=== PATIENT | female | born 1985 | race Caucasian/White ===

== ENCOUNTER 2019-12-09 10:58 | Outpatient (CLI) | payer OTHER, SELFPAY ==
[2019-12-09 11:39] LABS: Hematocrit 42.7 % (37.0-47.0); Hemoglobin 14.5 g/dL (12.0-15.0); Mean Corpuscular Hemoglobin 30.3 pg (26-34); Mean Corpuscular Volume 89.1 fl (80-100); Mean Platelet Volume 10.9 fl (7.4-10.4); Platelet Count Result 254 k/mm3 (150-375); Red Blood Count 4.79 M/mm3 (4.2-5.4); Red Cell Distribution Width 12.1 % (11.5-14.5); White Blood Count 10.6 K/mm3 (4.5-10.0)
== END 2019-12-09 10:59 | disposition home or self-care (01) ==
LOC: ANHSURGERY 11:01
PROVIDERS: PCP Internal Medicine; Visit Provider Student in an Organized Health Care Education/Training Program
DX: R10.2 Pelvic and perineal pain (principal)
CPT/HCPCS: 36415; 85027; 86850; 86900; 86901

== ENCOUNTER 2019-12-18 00:13 | Day surgery (SDC) | payer OTHER, SELFPAY ==
[2019-12-03 15:51] VITALS: BMI 39.4
[2019-12-18] VITALS (11 sets, daily range): BP systolic 108–130; BP diastolic 63–81; PULSE 68–90; RESP 15–24; TEMP 36.5–37.1; O2SAT 94–100
--- NOTE | 2019-12-18 09:06 | PM.IMHP ---
H&P: HPI History of Present Illness Chief complaint: pelvic pain, fibroids, enlarge uterus Narrative: Apryl Feliciano is a 34 year old female who presented with a long history of pelvic pain and known uterine fibroids. Pt was previously under the care of another Truck Driver Salesperson who no longer accepts her insurance. She received a pelvic US in September which showed rapid growth of her known uterine fibroid. Pt desires definitive management via hysterectomy. A pelvic MRI was obtained to further investigate fibroid size and location for surgical planning. patient and were acceptiable to the plan of hysterectomy and no future fertility. Review of Systems Constitutional: Constitutional: Reports no additional constitutional complaints Cardiovascular: Cardiovascular: Reports no additional cardiovascular complaints Respiratory: Respiratory: Reports no additional respiratory complaints Gastrointestinal: Gastrointestinal: Reports no additional gastrointestinal complaints Genitourinary: Genitourinary: Reports abnormal vaginal bleeding, Reports menorrhagia, Denies dysuria, Reports pelvic pain and Reports urinary incontinence Neurologic: Reports system reviewed and no additional complaints, except as documented Psychiatric: Psychiatric: Reports no additional psychiatric complaints [facility] Past Medical History Medical History (Updated 12/18/19 @ 09:15 by Jacinto Virk MD) Anxiety PCOS (polycystic ovarian syndrome) Meds Home Medications and Allergies Home Medications Medication Instructions Recorded Confirmed Type ibuprofen 800 mg PO DAILY 12/03/19 12/03/19 History multivitamin 1 tablet PO DAILY 12/03/19 12/03/19 History Allergies Allergy/AdvReac Type Severity Reaction Status Date / Time No Known Allergies Allergy Verified 12/03/19 15:52 Exam Const: General: comfortable and no acute distress Neck: Neck: no JVD Thyroid: thyroid normal Lymphatic: lymphadenopathy not noted Resp: Effort & Inspection: normal respiratory effort Auscultation: clear to auscultation bilaterally Cardio: Rate: regular rate Rhythm: regular rhythm GI: Inspection: non-distended GI Palp: Yes Soft to palpation, No Tenderness to palpation present (GI) and No Guarding due to palpation present (GI) Auscultation: normal bowel sounds : External Female Exam: normal external appearance Speculum Exam - Vagina: normal appearance of the vagina Speculum Exam - Cervix: normal appearance of the cervix Bimanual exam- vagina & uterus: bladder normal to palpation, enlarged, not fixed and nontender Bimanual Exam- Adnexa, other: normal adnexae and no masses Skin: General skin exam: no rashes or lesions noted Neuro: Cognition (Neuro): normal cognition Speech: normal speech Extrem: General: normal to inspection Psych: Mental Status: mental status grossly normal Affect: normal affect Assessment and Plan Assessment and plan (1) Uterine fibroid: Code(s): D25.9 - Leiomyoma of uterus, unspecified Status: Acute Assessment and Plan: pt with known uterine fibroid, reports increased pelvic pain MRI shows 7.5 cm anterior intramural uterine fibroid pelvic US shows uterus measuring 12 x 7.5x 7.7 cm discussed alternative management options. pt desires definitive management via hysterectomy plan for robotic assisted total laparoscopic hysterectomy with bilateral salpingectomy (2) Pelvic pain: Code(s): R10.2 - Pelvic and perineal pain Status: Acute
[2019-12-18] MEDS: LACTATED RINGERS 1,000 ML 30 ML IV CONT ×2 (11:00→14:54)
--- NOTE | 2019-12-18 11:04 | WPDANESEPPF ---
Anes - Initial Pre Proc Eval Procedure: Operation Date: 12/18/19 12:30 Proposed Procedures p Robotic Assisted Total Vaginal Hysterectomy with Bilateral Salpingectomy - Jacinto Virk MD Date/Time: 12/18/19 11:04 Surgeon: Jacinto Virk MD Pre Op Diagnosis: pelvic pain, fibroids, enlarge uterus Patient Data Age: 34 Gender: F Height: 5 ft 4 in Weight: 104.33 kg Allergies Allergy/AdvReac Type Severity Reaction Status Date / Time No Known Allergies Allergy Verified 12/03/19 15:52 Home Medications Medication Instructions Recorded Confirmed Type ibuprofen 800 mg PO DAILY 12/03/19 12/03/19 History multivitamin 1 tablet PO DAILY 12/03/19 12/03/19 History Patient hx anesthesia problems: post op nausea/vomiting Family hx anesthesia problems: none PMFSH Past Medical History Medical History Anxiety PCOS (polycystic ovarian syndrome) Anes - Eval Final PreProcedure Day of Procedure 12/18/19 11:04 Patient weight: morbidly obese Heart: regular rate and rhythm Lungs: clear to auscultation Airway: Mallampati scale class III Neurological: alert and oriented Last oral intake: >/= 8 hours ASA classification: III Emergent: no Anesthetic plan: proceed Anesthesia type and monitoring: general ETT and standard monitoring Informed Consent: The patient's anesthetic plan and its attendant risks and benefits were discussed with the patient/family/POA. Questions were solicited and answers provided to the satisfaction of the patient/family/POA.
[2019-12-18] MEDS: ONDANSETRON INJ 4 MG/2 ML VIAL IV PUSH (11:10)
[2019-12-18] MEDS: SCOPOLAMINE 1.5 MG PATCH TRANSDERM (11:10)
[2019-12-18] MEDS: ceFAZolin 2 GM/D5W 50 ML 2 GM/50 ML BAG IVPB (12:33)
[2019-12-18] MEDS: LIDO 1%/EPINEPHRINE 1:100,000 20 ML VIAL 10 ML INFILTRATE (14:10)
[2019-12-18] MEDS: KETOROLAC 30 MG/ML VIAL (*BKC) IV PUSH (14:31)
--- NOTE | 2019-12-18 14:33 | SUR.OPER ---
[id number]=[id number]
[2019-12-18] MEDS: HYDROMORPHONE HCL 1 MG/ML INJ 0.5 MG IV PUSH ×4 (15:04→15:43)
--- NOTE | 2019-12-18 15:20 | PM.PROC ---
Procedure Note - Detailed Date of procedure: 12/18/19 Pre-op diagnosis: pelvic pain, fibroids, enlarge uterus Procedure performed: Robotic assisted total laparoscopic hysterectomy bilateral salpingectomy Description of procedure: PROCEDURE IN DETAIL: After the patient was appropriately consented she was taken to the operating room where she was transferred to the table in a dorsal supine position. General anesthesia was then induced with endotracheal intubation. The patient was transferred to a dorsal lithotomy position using adjustable yellow-fin stirrups. Her position was adjusted for appropriate support of her lower back and lower extremities. The patient was prepped and draped. A transurethral vigil catheter was place. The uterus was sounded to 10 cm. The cervix was sequentially dilated and a GRIFFIN uterine manipulator placed in typical fashion about a 3.5 cm JASMYN ring. Gloves were changed. After confirmation of a functioning orogastric tube, lidocaine was injected at Arteaga's point in the LUQ and a 5mm incision was made. A 5mm Optiview trocar was then inserted into the abdominal cavity under direct visualization and done so without complication. The abdomen was then insufflated with approximately 2-3L of CO2 establishing a pneumoperitoneum and the patient was placed in Trendelenburg position. Just above the umbilicus in the midline, a 10mm incision made after injection of lidocaine and a 12mm bladeless trocar advanced into the abdominal cavity under direct visualization without incident. We subsequently placed two robotic ports in a similar fashion, one in the left mid-quadrant and one in the right, 10cm lateral to the midline port. The robot was then docked. The Left fallopian tube was identified out to the fimbrae. The fallopian tube was then coagulated and ligated along the inferior mesosalpinx toward the uterus. The utero-ovarian ligament was identified and ligated. The left round ligament was divided and the posterior aspect of the broad ligament was then skeletonized down to the level of the internal cervical os, mobilizing the ureter laterally. The bladder flap was then created sharply. The ipsilateral uterine artery was skeletonized, bipolar cauterized and transected. A similar procedure was performed on the contralateral side, developing the pelvic spaces, coagulating and dividing the IP away from the ureter, completing the bladder flap, and skeletonizing, ligating, and dividing the uterine artery on this side. We ensured the vaginal pneumo-occluder balloon was insufflated and made a circumferential colpotomy using monopolar current. The uterus, cervix, and bilateral tubes were then delivered transvaginally. I then re-approximated the colpotomy with a single interuppted 0-vicryl at the left apex and running #1 PDO Quill suture in 2 layers. Following this dissection, the abdomen and pelvis were copiously irrigated and all surgical sites found to be hemostatic. Hemoderm powder was placed over the vaginal cuff. Skin sites were reapproximated with 4-0 Vicryl in a subcuticular fashion. Dermabond placed. The patient tolerated the procedure well. Sponge, needle and instrument counts were correct x 2 and the patient was taken to recovery in stable condition. Ancef was given for antimicrobial prophylaxis. The patient had SCD's on for VTE prophylaxis during the entire procedure. Anest[facility]: [facility] Surgeon: Jacinto Virk MD Estimated blood loss (mL): 100 IV fluids (mL): 1,600 Urine output (mL): 150 Drains: No Packing: No Pathology: yes (uterus, cervix, bilateral fallopian tubes, bilateral ovaries ) Complications: No immediate complications Condition: stable Disposition: PACU
--- NOTE | 2019-12-18 15:24 | SUR.PHASEI ---
1515 placed to bedpan unable to void and removed.
--- NOTE | 2019-12-18 15:56 | SUR.PHASEI ---
[address] kumar and informed for pt status,states will see pt in 10 min.
== END 2019-12-18 17:28 | disposition home or self-care (01) ==
PROVIDERS: PCP Internal Medicine; Visit Provider Student in an Organized Health Care Education/Training Program
PROC: (CPT 58554; principal; 2019-12-18 12:30)
DX: D25.1 Intramural leiomyoma of uterus (principal); N72 Inflammatory disease of cervix uteri; N88.8 Other specified noninflammatory disorders of cervix uteri; N83.8 Other noninflammatory disorders of ovary, fallopian tube and broad ligament; R10.2 Pelvic and perineal pain; E28.2 Polycystic ovarian syndrome; F41.9 Anxiety disorder, unspecified; E66.01 Morbid (severe) obesity due to excess calories; Z68.39 Body mass index [BMI] 39.0-39.9, adult
CPT/HCPCS: 58554; 88307; A9270; J0131; J0690; J1100; J1170; J1885; J2250; J2270; J2405; J2704; J7030; J7120

== ENCOUNTER 2023-03-11 18:12 | Emergency (ER) | payer OTHER, SELFPAY ==
--- NOTE | ~2023-03-11 | US_ITS ---
EXAMINATION: US pelvic complete DATE: 03/11/2023 22:52 INDICATION: left pelvic pain, n/v TECHNIQUE: Multiple transabdominal sonographic images of the pelvis were obtained. COMPARISON: MR pelvis 11/16/2019. FINDINGS: Uterus: Surgically absent. Right Ovary: 2.5 x 2.7 x 3.0 cm. Vascular flow is present. Left Ovary: 2.9 x 2.4 x 2.7 cm. Vascular flow is present. There is no free fluid in the pelvis. IMPRESSION: Status post hysterectomy. Otherwise normal pelvic sonogram findings. Reviewed, dictated and finalized at location [facility].
[2023-03-11 18:26] VITALS: BP 144/90; PULSE 88; RESP 18; TEMP 36.7; O2SAT 100
[2023-03-11 19:56] LABS: Appearance Urine Clear (Clear); Bilirubin Urine Negative (Negative); Blood Urine Negative (Negative); Color Urine Yellow (Yellow); Glucose Urine UA Negative (Negative); Ketones Urine Trace mg/dL (Negative); Leukocyte Esterase Ur Negative LEU/UL (Negative); Nitrate Urine Negative (Negative); Protein Urine Negative (Negative); Specific Grav Ur 1.025 (1.001-1.035); Urobilinogen Urine 0.2 mg/dL (<2.0); pH Urine 5.5 (5.0-9.0)
[2023-03-11 19:56] LABS: Basophils Percent Auto 0.2 % (0.2-1.2); Eosinophils Absolute Auto 0.1 K/mm3 (0-0.3); Eosinophils Percent Auto 0.7 % (0-4.4); Hematocrit 39.2 % (37.0-47.0); Hemoglobin 13.2 g/dL (12.0-15.0); Immature Granulocyte Absolute 0.06 K/mm3 (0.00-0.031); Immature Granulocyte Percent A 0.5 % (0-0.5); Lymphocytes Absolute Auto 2.18 K/mm3 (0.9-3.2); Lymphocytes Percent Auto 17.4 % (18.3-44.2); Mean Corpuscular HGB Conc 33.7 g/dl (32-36); Mean Corpuscular Hemoglobin 31.1 pg (26-34); Mean Corpuscular Volume 92.5 fl (80-100); Mean Platelet Volume 9.6 fl (7.4-10.4); Monocytes Absolute Auto 0.6 K/mm3 (0.1-0.6); Neutrophils Absolute Auto 9.5 K/mm3 (1.3-6.7); Neutrophils Percent Auto 76.2 % (45.5-73.1); Platelet Count Result 234 k/mm3 (150-375); Red Blood Count 4.24 M/mm3 (4.2-5.4); Red Cell Distribution Width 12.9 % (11.5-14.5); White Blood Count 12.5 K/mm3 (4.5-10.0)
[2023-03-11 20:06] LABS: Add Urine Microscopic? NO
[2023-03-11 20:06] LABS: Alanine Aminotransferase 34 U/L (6-35); Albumin Level 4.3 g/dL (3.5-5.1); Alkaline Phosphatase 44 U/L (38-126); Anion Gap 6 mmol/L (8-16); Aspartate Amino Transferase 38 U/L (14-36); Bilirubin,Total 0.4 mg/dL (0.2-1.3); Blood Urea Nitrogen 13 mg/dL (7-17); Calcium 8.7 mg/dL (8.4-10.2); Carbon Dioxide 28 mmol/L (22-30); Chloride 104 mmol/L (98-107); Estimated CRCL calculation 174 ml/min; Estimated Glomerular Filt Rate > 60; Glucose 98 mg/dL (65-110); Lipase 48 U/L (23-300); Potassium 4.1 mmol/L (3.4-5.0); Sodium 138 mmol/L (137-145)
[2023-03-11 21:58] VITALS: BP 149/87; PULSE 93; RESP 18; TEMP 36.4; O2SAT 98
[2023-03-11] MEDS: ONDANSETRON INJ 4 MG/2 ML VIAL IV PUSH (22:58)
--- NOTE | 2023-03-11 22:58 | ED.FEMALEGU ---
HPI - Female Genitourinary General Chief complaint: [employer] Stated complaint: left pelvic/abd pain Time Seen by Provider: 03/11/23 22:13 History of Present Illness HPI Narrative: Patient is a 38-year-old female here for evaluation of left pelvic/back pain x 1 day. She was seen at outside emergency department today, she had labs and a CT scan done and was told that she had some inflammation in her fallopian tube and to get an outpatient pelvic ultrasound. Patient states that the pain has persisted and worsened. Some vaginal discharge but denies any dysuria, urgency, frequency vaginal bleeding, vomiting, diarrhea, constipation or fevers. Related Data Home Medications Medication Instructions Recorded Confirmed multivitamin 1 tablet PO DAILY 12/03/19 12/03/22 bupropion HCl 300 mg 24 hr tablet, 300 mg PO QAM 11/30/22 11/30/22 extended release buspirone 10 mg tablet 10 mg PO BID 11/30/22 11/30/22 clonazepam 0.5 mg tablet 0.5 mg PO DAILY 11/30/22 11/30/22 duloxetine 60 mg capsule,delayed 60 mg PO .hs 11/30/22 11/30/22 release esketamine 84 mg (28 mg x 3) nasal 84 mg intranasal 2XW 11/30/22 11/30/22 spray (Spravato) serdexmethylphenidate 52.3 1 tablet PO QAM 11/30/22 11/30/22 mg-dexmethylphenidate 10.4 mg capsule (Azstarys) Allergies Allergy/AdvReac Type Severity Reaction Status Date / Time fentanyl AdvReac Mild AGITATION, Verified 12/03/22 12:58 COMBATIVENESS, HOT/FLUSHED SENSATION Review of Systems Review of Systems: Gen: Denies fevers or chills Eyes: Denies eye pain or visual change ENT: Denies congestion Respiratory: Denies shortness of breath or cough CV: Denies chest pain or palpitations GI: Reports left-sided abdominal pain. denies burning, urgency, frequency or hematuria Musculoskeletal: Denies back pain or muscle pain Neuro: Denies numbness, tingling, weakness or focal weakness Skin: Denies rash Except as documented, all other systems reviewed and negative PMFSH Past Medical History Medical History ADHD Anxiety Depression PCOS (polycystic ovarian syndrome) Pelvic pain Uterine fibroid Surgical History Surgical History H/O: hysterectomy 12/2019 Family History Family History Mother Hypertension Depression Anxiety Grandparent Anxiety Hypertension Depression Social History Social History Smoking packs per day: 0.5 Smoking cigarettes per day: 10.0 Years smoked: 15 Smoking pack-years: 7.50 Smoking status: Former smoker Smoking end date: 11/04/21 Alcohol intake: never Substance use: never Living arrangements: with family Occupation/Education: occupation 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 Well appearing, no pain in distress, well-nourished. Head: Normocephalic and atraumatic. EYES: PERRLA/EOMI, conjunctivae clear NOSE: No nasal drainage EARS: External ear normal in appearance NECK: Supple. No adenopathy, no masses. RESPIRATORY: Airway patent, respirations nonlabored. Clear to auscultation bilaterally, no rales, rhonchi, wheezing. CARDIOVASCULAR: Regular rate and rhythm without murmurs, rubs, or gallops. ABDOMINAL: slight llq abdominal tenderness. Normoactive bowel sounds. Soft, nondistended. No rebound tenderness or guarding. MUSCULOSKELETAL: Extremities are warm and well-perfused. Moves all extremities well. No edema. NEURO: Normal speech. No focal neurologic deficits. SKIN: Skin is warm and dry. No rashes. PSYCHIATRIC: tearful Course Vital Signs Vital signs: Vital Signs Temperature 98.1 F 03/11/23 18:26 Pulse Rate 88 03/11/23 18:26 Respiratory Rate 18 03/11/23 18:26 Blood Pressure 144/90 H 03/11/23 18:26 Pulse Oximetry 100 0
[2023-03-11] MEDS: MORPHINE SULFATE (*CRX) 4 MG/ML INJ IV PUSH (23:00)
[2023-03-11 23:40] VITALS: BP 114/57; PULSE 72; RESP 15; O2SAT 100
[2023-03-12 00:13] VITALS: BP 119/79; PULSE 75; RESP 15; TEMP 36.6; O2SAT 100
== END 2023-03-12 00:14 | disposition home or self-care (01) ==
PROVIDERS: Nurse Practitioner Family; Emergency Provider Physician Assistant; PCP Internal Medicine
DX: R10.2 Pelvic and perineal pain (principal); F90.9 Attention-deficit hyperactivity disorder, unspecified type; F41.9 Anxiety disorder, unspecified; F32.A Depression, unspecified
CPT/HCPCS: 36415; 76856; 80053; 81003; 83690; 85025; 96374; 96375; 99284; J2270; J2405